=== PATIENT | female | born 2000 | race African-American/Black ===

== ENCOUNTER 2019-04-19 09:55 | Emergency (ER) | payer OTHER ==
[2019-04-19 10:02] VITALS: TEMP 97.1
[2019-04-19] MEDS ORDERED: ONDANSETRON 4 MG/2 ML VIAL IVP STA (10:23)
[2019-04-19] MEDS ORDERED: SODIUM CHLORIDE 0.9% 500 ML 500 ML IV STA (10:23)
[2019-04-19] MEDS ORDERED: MAG HYDROX/AL HYDROX/SIMETH 30 ML, HYOSCYAMINE ELIXIR 10 ML, CIMETIDINE HCL 300 MG, LID... PO STA ×4 (10:24)
[2019-04-19] MEDS ORDERED: FAMOTIDINE 20 MG/2 ML VIAL IV STA (10:24)
--- NOTE | 2019-04-19 10:27 | ED ---
General Adult HPI - General Chief complaint: Abdominal Pain Stated complaint: ABDOMINAL PAIN, VOMITING Time Seen by Provider: 04/19/19 10:06 Source: patient, RN notes reviewed Mode of arrival: ambulatory Limitations: no limitations - History of Present Illness Initial comments: 18-year-old female presents for epigastric pain 2 months. Patient states the pain is always in the upper abdomen. Patient states it is a burning pain in nature. Patient states aggravating factors include eating certain foods especially drinking coffee. States that after she eats she becomes nauseous and sometimes vomits. Patient states that she possibly had small specks of blood in her vomit this morning after eating a banana. Patient states she does take a lot of Motrin but has been trying not to take this because she believes she could have an ulcer. Patient states she last had a bowel movement this morning, denies any lower abdominal pain or difficulty producing a bowel movement. Denies any chance of . Denies any fevers or chills.Patient has no other complaints at this time including shortness of breath, chest pain, nausea or vomiting, headache, or visual changes. - Related Data Previous Rx's Medication Instructions Recorded Famotidine [Pepcid] 20 mg PO BID #30 tablet 04/19/19 Ondansetron [Zofran ODT] 4 mg PO Q8HR PRN #15 tab 04/19/19 Sucralfate [Carafate] 1 gm PO ACHS PRN #20 tab 04/19/19 Allergies Allergy/AdvReac Type Severity Reaction Status Date / Time No Known Allergies Allergy Verified 04/19/19 10:06 Review of Systems ROS Statement: Those systems with pertinent positive or pertinent negative responses have been documented in the HPI. ROS Other: All systems not noted in ROS Statement are negative. Past Medical History Past Medical History: No Reported History History of Any Multi-Drug Resistant Organisms: None Reported Past Surgical History: No Surgical Hx Reported Past Psychological History: No Psychological Hx Reported Smoking Status: Never smoker Past Alcohol Use History: None Reported Past Drug Use History: None Reported General Exam Limitations: no limitations General appearance: alert, in no apparent distress Head exam: Present: atraumatic, normocephalic, normal inspection Eye exam: Present: normal appearance, PERRL, EOMI. Absent: scleral icterus, conjunctival injection, periorbital swelling ENT exam: Present: normal exam, mucous membranes moist Neck exam: Present: normal inspection, full ROM. Absent: tenderness, meningismus, lymphadenopathy Respiratory exam: Present: normal lung sounds bilaterally. Absent: respiratory distress, wheezes, rales, rhonchi, stridor Cardiovascular Exam: Present: regular rate, normal rhythm, normal heart sounds. Absent: systolic murmur, diastolic murmur, rubs, gallop, clicks GI/Abdominal exam: Present: soft, tenderness (minimal epigastric tenderness. No lower abdominal tenderness. No RUQ tenderness, negative guaman sign), normal bowel sounds. Absent: distended, guarding (no guarding, abdomen soft with palpation), rebound, rigid Expanded GI/Abdominal exam: Absent: psoas sign, obturator sign, heel tap sign, Guaman's sign, Rovsing's sign, tenderness at McBurney's Point, ascites Neurological exam: Present: alert, oriented X3, CN II-XII intact Psychiatric exam: Present: normal affect, normal mood Course Vital Signs 04/19/19 04/19/19 09:59 11:29 Temperature 97.1 F L Pulse Rate 83 61 Respiratory 16 16 Rate Blood Pressure 123/81 112/83 O2 Sat by Pulse 99 100 Oximetry Medical Decision Making - Medical Decision Making 18-year-old female presents for epigastric pain 2 months. States the pain is always in her upper abdomen. Burning in nature. Denies any radiating pain. Does admit that certain foods aggravated especially coffee. States that it does make her nauseous and she had a speck of blood in her vomit this morning. States this is only specks in her vomit. On exam patient has minimal epigastric tenderness without any guarding or rebound. Abdomen is soft. CBC and CMP are unremarkable. Pain did initially resolve with Pepcid and GI cocktail. However pain returned. At that point Protonix and x-ray were ordered which did not show any evidence of pneumoperitoneum. Possible ileus or enteritis. However no diarrhea, bowel movements normal. Patient has not vomited while in the ER. She reevaluated after bursitis given, feeling much better. Patient likely has a gastritis or possibly developing ulcer. Patient will be treated with Pepcid and Zofran. Also will be given Carafate. Discussed appropriate follow-up with GI. Discussed returning if she has any worsening symptoms. - Lab Data Result diagrams: 04/19/19 10:15 04/19/19 10:15 Lab Results 04/19/19 04/19/19 04/19/19 Range/Units 10:15 10:15 11:25 WBC 5.6 (4.0-11.0) k/uL RBC 5.10 (3.80-5.40) m/uL Hgb 13.6 (11.4-16.0) gm/dL Hct 42.0 (34.0-46.0) % MCV 82.3 (80.0-100.0) fL MCH 26.6 (25.0-35.0) pg MCHC 32.3 (31.0-37.0) g/dL RDW 13.1 (11.5-15.5) % Plt Count 341 (150-450) k/uL Neutrophils % 56 % Lymphocytes % 31 % Monocytes % 7 % Eosinophils % 4 % Basophils % 0 % Neutrophils # 3.1 (1.3-7.7) k/uL Lymphocytes # 1.7 (1.0-4.8) k/uL Monocytes # 0.4 (0-1.0) k/uL Eosinophils # 0.2 (0-0.7) k/uL Basophils # 0.0 (0-0.2) k/uL Sodium 141 (137-145) mmol/L Potassium 4.0 (3.5-5.1) mmol/L Chloride 107 (98-107) mmol/L Carbon Dioxide 25 (22-30) mmol/L Anion Gap 9 mmol/L BUN 11 (7-17) mg/dL Creatinine 0.89 (0.52-1.04) mg/dL Est GFR (CKD-EPI)AfAm >90 (>60 ml/min/1.73 sqM) Est GFR (CKD-EPI)NonAf >90 (>60 ml/min/1.73 sqM) Glucose 82 (74-99) mg/dL Calcium 9.8 (8.4-10.2) mg/dL Total Bilirubin 1.0 (0.2-1.3) mg/dL AST 21 (14-36) U/L ALT 20 (9-52) U/L Alkaline Phosphatase 48 (38-126) U/L Total Protein 7.5 (6.3-8.2) g/dL Albumin 4.6 (3.5-5.0) g/dL Amylase 71 (30-110) U/L Lipase 70 (23-300) U/L Urine Color Urine Appearance (Clear) Urine pH (5.0-8.0) Ur Specific Wittman (1.001-1.035) Urine Protein (Negative) Urine Glucose (UA) (Negative) Urine Ketones (Negative) Urine Blood (Negative) Urine Nitrite (Negative) Urine Bilirubin (Negative) Urine Urobilinogen (<2.0) mg/dL Ur Leukocyte Esterase (Negative) Urine HCG, Qual Not Detected (Not Detectd) 04/19/19 Range/Units 11:25 WBC (4.0-11.0) k/uL RBC (3.80-5.40) m/uL Hgb (11.4-16.0) gm/dL Hct (34.0-46.0) % MCV (80.0-100.0) fL MCH (25.0-35.0) pg MCHC (31.0-37.0) g/dL RDW (11.5-15.5) % Plt Count (150-450) k/uL Neutrophils % % Lymphocytes % % Monocytes % % Eosinophils % % Basophils % % Neutrophils # (1.3-7.7) k/uL Lymphocytes # (1.0-4.8) k/uL Monocytes # (0-1.0) k/uL Eosinophils # (0-0.7) k/uL Basophils # (0-0.2) k/uL Sodium (137-145) mmol/L Potassium (3.5-5.1) mmol/L Chloride (98-107) mmol/L Carbon Dioxide (22-30) mmol/L Anion Gap mmol/L BUN (7-17) mg/dL Creatinine (0.52-1.04) mg/dL Est GFR (CKD-EPI)AfAm (>60 ml/min/1.73 sqM) Est GFR (CKD-EPI)NonAf (>60 ml/min/1.73 sqM) Glucose (74-99) mg/dL Calcium (8.4-10.2) mg/dL Total Bilirubin (0.2-1.3) mg/dL AST (14-36) U/L ALT (9-52) U/L Alkaline Phosphatase (38-126) U/L Total Protein (6.3-8.2) g/dL Albumin (3.5-5.0) g/dL Amylase (30-110) U/L Lipase (23-300) U/L Urine Color Light Yellow Urine Appearance Clear (Clear) Urine pH 7.0 (5.0-8.0) Ur Specific [place] 1.009 (1.001-1.035) Urine Protein Negative (Negative) Urine Glucose (UA) Negative (Negative) Urine Ketones Negative (Negative) Urine Blood Negative (Negative) Urine Nitrite Negative (Negative) Urine Bilirubin Negative (Negative) Urine Urobilinogen <2.0 (<2.0) mg/dL Ur Leukocyte Esterase Negative (Negative) Urine HCG, Qual (Not Detectd) Disposition Clinical Impression: Epigastric pain Disposition: HOME SELF-CARE Condition: Good Instructions (If sedation given, give patient instructions): Epigastric Pain (ED) Additional Instructions: Take medications as directed. Follow up with GI in 1-2 days. Return here to the emergency department if you have any worsening symptoms. Prescriptions: Sucralfate [Carafate] 1 gm PO ACHS PRN #20 tab PRN Reason: Pain Famotidine [Pepcid] 20 mg PO BID #30 tablet Ondansetron [Zofran ODT] 4 mg PO Q8HR PRN #15 tab PRN Reason: Nausea Is patient prescribed a controlled substance at d/c from ED?: No Referrals: Yessi Hi MD [REFERRING] - 1-2 days Elliot Corbett MD [STAFF PHYSICIAN] - 1-2 days Time of Disposition: 12:26
[2019-04-19 10:46] LABS: Basophils % (A) 0 %; Eosinophils # (A) 0.2 k/uL (0-0.7); Eosinophils % (A) 4 %; HGB 13.6 gm/dL (11.4-16.0); Lymphocytes # (A) 1.7 k/uL (1.0-4.8); Lymphocytes % (A) 31 %; MCH 26.6 pg (25.0-35.0); MCHC 32.3 g/dL (31.0-37.0); MCV 82.3 fL (80.0-100.0); Mean Platelet Volume 6.2; Monocytes # (A) 0.4 k/uL (0-1.0); Monocytes % (A) 7 %; Neutrophils # (A) 3.1 k/uL (1.3-7.7); Neutrophils % (A) 56 %; Platelet Count 341 k/uL (150-450); RDW 13.1 % (11.5-15.5); WBC 5.6 k/uL (4.0-11.0)
[2019-04-19 10:48] LABS: ALT 20 U/L (9-52); AST 21 U/L (14-36); African American GFR (CKD) >90 (>60 ml/min/1.73 sqM); Albumin 4.6 g/dL (3.5-5.0); Alkaline Phosphatase 48 U/L (38-126); Amylase 71 U/L (30-110); Anion Gap 9 mmol/L; Blood Urea Nitrogen 11 mg/dL (7-17); Calcium 9.8 mg/dL (8.4-10.2); Carbon Dioxide 25 mmol/L (22-30); Chloride 107 mmol/L (98-107); Glucose 82 mg/dL (74-99); Lipase 70 U/L (23-300); Sodium 141 mmol/L (137-145); Total Protein 7.5 g/dL (6.3-8.2)
[2019-04-19] MEDS ORDERED: PANTOPRAZOLE 40 MG/10 ML VIAL IVP STA (11:43)
[2019-04-19 11:52] LABS: Appearance,Urine Clear (Clear); Bilirubin,Urine Negative (Negative); Blood,Urine Negative (Negative); Color,Urine Light Yellow; Glucose,Urine (UA) Negative (Negative); Ketones,Urine Negative (Negative); Leukocyte Esterase,Urine Negative (Negative); Nitrite,Urine Negative (Negative); Protein,Urine Negative (Negative); Specific Gravity,Urine 1.009 (1.001-1.035); Urobilinogen,Urine <2.0 mg/dL (<2.0)
--- NOTE | 2019-04-19 12:04 | XR ---
KUB HISTORY: Pain and vomiting KUB submitted on 2 images There are air-fluid levels without bowel distention. No pneumoperitoneum. Lung bases are clear. No pa thologic calcification. Bone mineralization is normal. IMPRESSION: Correlate for possible ileus or enteritis, follow-up as indicated.
[2019-04-19 12:46] VITALS: BP 115/87; PULSE 80; RESP 18
== END 2019-04-19 12:48 | disposition home or self-care (01) ==
LOC: EC 09:55
DX: R10.13 Epigastric pain (principal); R11.2 Nausea with vomiting, unspecified
CPT/HCPCS: 36415; 80053; 82150; 83690; 85025; 81003; 81025; 74018; 99284; 96374; 96375 ×2; J2405; C9113

== ENCOUNTER 2019-05-02 09:56 | Day surgery (SDC) | payer OTHER ==
[2019-04-29 14:56] VITALS: BMI 29.9
[~2019-05-02 09:56] MED LIST: LACTATED RINGERS 1,000 ML IV SCH
[2019-05-02 10:26] VITALS: RESP 16; TEMP 96.8
[2019-05-02] MEDS ORDERED: LIDOCAINE 1% 20 ML VIAL (10MG/ML) FOR IV START INTRADERMA ONE (10:30)
[2019-05-02] MEDS ORDERED: PROPOFOL 10 MG/ML 20 ML VIAL IV ONE (10:47)
[2019-05-02] MEDS ORDERED: LIDOCAINE 1% INJ 10MG/ML (20 ML MDV) ONE (10:47)
--- NOTE | 2019-05-02 11:23 | P.PCN ---
Date of Procedure: 05/02/19 Procedure(s) Performed: Procedure: Esophagogastroduodenoscopy and biopsy. Preoperative diagnosis: Epigastric pain and history of hematemesis. Postoperative diagnosis: 1. Small sliding hiatal hernia with no obvious esophagitis or complicated reflux disease. 2. Mild antral gastritis. 3. Multiple biopsies obtained from the duodenum, antrum and esophagus. Preparation and sedation: Was provided by anesthesia. Brief clinical history: The patient is a 18-year-old female who I have evaluated in the office earlier this month regarding 2 episodes of hematemesis, one around 2 months ago and one earlier this month when she went to ER with abdominal pain, vomiting including vomiting of blood. This evaluation is to assess for PUD, complicated reflux disease or other pathology. Procedure: With the patient on her left lateral decubitus position and after informed consent and adequate sedation, I passed the Olympus-GIF H190 video upper endoscope through the cricopharyngeus down the esophagus. GE junction was around 34 cm from the incisors and there was a small sliding hiatal hernia but no obvious esophagitis or complicated reflux disease. The endoscope was then advanced into the stomach which was insufflated with air and inspected in detail including the retroflex view in the cardia. There was some mottling and erythema in the antrum but no ulcers or erosions. Pyloric channel, duodenal bulb, post bulbar area and descending duodenum appeared within normal limits. Because of her symptoms, obtained biopsies from the duodenum, antrum and esophagus then the endoscope was withdrawn. The patient tolerated the procedure well. Plan: The patient was reassured. Will await biopsy results. Further plans based on her course and biopsy results. We will keep you updated on her progress and she will follow-up with you as planned
[2019-05-02 11:36] VITALS: BP 109/81; PULSE 73
== END 2019-05-02 11:43 | disposition home or self-care (01) ==
LOC: ORWHC2ENDO 09:56
DX: K44.9 Diaphragmatic hernia without obstruction or gangrene (principal); K29.50 Unspecified chronic gastritis without bleeding
CPT/HCPCS: 81025; 88305; 43239; J2001; J2704

== ENCOUNTER → 2023-07-28 | Outpatient (CLI) | payer OTHER | END | disposition home or self-care (01) | LOC: LABWHC1 14:10 | PROVIDERS: ATTEND Family Medicine | DX: E61.1 Iron deficiency (principal) | CPT/HCPCS: 36415; 82607; 82746 ==